=== PATIENT | female | born 1980 | race Caucasian/White ===

== ENCOUNTER → 2017-06-27 11:39 | Outpatient (REF) | payer MEDICAID, SELFPAY ==
[2017-06-27 18:15] LABS: Basophils % 0.4 % (0.1-2.0); Eosinophils # 0.2 K/mm3 (0.0-0.4); Eosinophils % 2.4 % (0.1-12.0); Hematocrit 40.7 % (37.0-47.0); Lymphocytes # 2.2 K/mm3 (0.7-4.5); Lymphocytes % 29.7 K/mm3 (10-50); Mean Corpuscular HGB Conc 31.9 g/dL (31.8-35.4); Mean Corpuscular Hemoglobin 29.7 pg (27.0-31.2); Mean Corpuscular Volume 93.2 fl (81-99); Mean Platelet Volume 9.5 fl (7.4-10.4); Monocytes # 0.3 K/mm3 (0.1-1.0); Monocytes % 4.1 % (1.7-9.3); Neutrophils # 4.7 K/mm3 (1.8-7.8); Neutrophils % 63.4 % (37.0-80.0); Platelet Count 311 K/mm3 (142-424); Red Blood Count 4.37 M/mm3 (4.20-5.40); Red Cell Distribution Width 13.3 % (11.5-17.5); White Blood Count 7.4 K/mm3 (4.8-10.8)
[2017-06-27 20:26] LABS: Alanine Aminotransferase 34 U/L (12-78); Albumin Level 3.4 gm/dL (3.4-5.0); Albumin/Globulin Ratio 1.1 (1.1-1.8); Alkaline Phosphatase 104 U/L (46-116); Anion Gap 12.1 mEq/L (5-15); Aspartate Amino Transferase 20 U/L (15-37); Bilirubin,Total 0.4 mg/dL (0.2-1.0); Blood Urea Nitrogen 13 mg/dL (7-18); Calcium 8.4 mg/dL (8.5-10.1); Carbon Dioxide 26 mmol/L (21.0-32.0); Chloride 104 mmol/L (98-107); Creatinine,Serum 0.64 mg/dL (0.55-1.02); Estimated Glomerular Filt Rate > 60 ml/min (>60); GFR (African American) > 60 ML/MIN (>60); Globulin 3.1 gm/dl (1.3-3.2); Glucose 68 mg/dL (74-106); Potassium 4.1 mmoL/L (3.5-5.1); Sodium 138 mmol/L (136-145); Total Protein,Serum 6.5 gm/dL (6.4-8.2)
== END ==
LOC: LAB 11:39
PROVIDERS: Visit Provider Nurse Practitioner Family
DX: R53.83 Other fatigue (principal); R10.9 Unspecified abdominal pain
CPT/HCPCS: 80053; 85025

== ENCOUNTER → 2017-08-22 14:46 | Outpatient (REF) | payer MEDICAID, SELFPAY ==
[2017-08-25 16:03] LABS: Amphetamine/Metha Screen,Urine Negative ng/mL (<1000); Barbiturates Screen,Urine Negative ng/mL (<200); Benzodiazepines Screen,Urine Negative ng/mL (200); Cannabinoid Screen,Urine Negative ng/mL (<50); Cocaine Screen,Urine Negative ng/g (<300); Methadone Screen,Urine Negative ng/mL (<300); Opiate Screen,Urine Negative ng/mL (<300); Phencyclidine Screen,Urine Negative ng/mL (<25)
== END ==
LOC: LAB 14:46
PROVIDERS: Visit Provider Nurse Practitioner Family
DX: R68.89 Other general symptoms and signs (principal)
CPT/HCPCS: 80305

== ENCOUNTER → 2017-11-10 09:45 | Outpatient (REF) | payer MEDICAID, SELFPAY ==
[2017-11-10 13:43] LABS: Basophils % 0.5 % (0.1-2.0); Eosinophils # 0.1 K/mm3 (0.0-0.4); Eosinophils % 1.8 % (0.1-12.0); Hematocrit 39.8 % (37.0-47.0); Hemoglobin 13.3 g/dL (12.2-16.2); Lymphocytes % 31.9 K/mm3 (10-50); Mean Corpuscular HGB Conc 33.3 g/dL (31.8-35.4); Mean Corpuscular Hemoglobin 30.5 pg (27.0-31.2); Mean Corpuscular Volume 91.4 fl (81-99); Mean Platelet Volume 9.7 fl (7.4-10.4); Monocytes # 0.3 K/mm3 (0.1-1.0); Monocytes % 4.7 % (1.7-9.3); Neutrophils # 3.8 K/mm3 (1.8-7.8); Platelet Count 278 K/mm3 (142-424); Red Blood Count 4.36 M/mm3 (4.20-5.40); Red Cell Distribution Width 13.1 % (11.5-17.5); White Blood Count 6.2 K/mm3 (4.8-10.8)
[2017-11-10 13:58] LABS: Hemoglobin A1C 4.6 % (0.0-7.0)
[2017-11-10 14:33] LABS: Alanine Aminotransferase 28 U/L (12-78); Albumin Level 3.5 gm/dL (3.4-5.0); Albumin/Globulin Ratio 1.1 (1.1-1.8); Alkaline Phosphatase 90 U/L (46-116); Anion Gap 13.6 mEq/L (5-15); Aspartate Amino Transferase 15 U/L (15-37); Bilirubin,Total 0.4 mg/dL (0.2-1.0); Blood Urea Nitrogen 17 mg/dL (7-18); Calcium 9.3 mg/dL (8.5-10.1); Carbon Dioxide 25 mmol/L (21.0-32.0); Chloride 107 mmol/L (98-107); Chol/HDL Ratio 2.6 (1-3.5); Cholesterol 136 mg/dL (140-200); Creatinine,Serum 0.61 mg/dL (0.55-1.02); Estimated Glomerular Filt Rate 111 ml/min (>60); GFR (African American) 134 ML/MIN (>60); Globulin 3.1 gm/dl (1.3-3.2); Glucose 91 mg/dL (74-106); HDL Cholesterol 53 mg/dL (29-89); LDL Cholesterol 71 mg/dL (0-130); Potassium 4.6 mmoL/L (3.5-5.1); Sodium 141 mmol/L (136-145); Total Protein,Serum 6.6 gm/dL (6.4-8.2); Triglycerides 61 mg/dL (30-200); VLDL Cholesterol 12 mg/dL (0-40)
== END ==
LOC: LAB 09:45
PROVIDERS: Visit Provider Nurse Practitioner Family
DX: R53.83 Other fatigue (principal); E66.9 Obesity, unspecified; Z79.899 Other long term (current) drug therapy
CPT/HCPCS: 80053; 80061; 83036; 85025

== ENCOUNTER → 2018-02-18 10:58 | Outpatient (REF) | payer MEDICAID, SELFPAY ==
[2018-02-20 13:22] LABS: Hepatitis B Surf Ab Quant <3.1 mIU/mL (Immunity>9.9)
== END ==
LOC: LAB 10:58
PROVIDERS: Visit Provider Physician Assistant
DX: Z02.1 Encounter for pre-employment examination (principal)
CPT/HCPCS: 86706

== ENCOUNTER → 2018-02-27 09:55 | Outpatient (REF) | payer MEDICAID, SELFPAY ==
[2018-03-03 08:30] LABS: Measles Antibodies, IgG >300.0 AU/mL (Immune >29.9); Mumps Abs, IgG 65.9 AU/mL (Immune >10.9); Rubella Antibodies, IgG 2.88 index (Immune >0.99)
== END ==
LOC: LAB 09:55
PROVIDERS: Visit Provider Emergency Medicine
DX: Z02.1 Encounter for pre-employment examination (principal); Z23 Encounter for immunization
CPT/HCPCS: 86735; 86762; 86765

== ENCOUNTER → 2019-03-05 13:48 | Outpatient (CLI) | payer MEDICAID, SELFPAY ==
[2019-03-05 14:38] LABS: Amphetamine/Metha Screen,Urine Negative ng/mL (<1000); Barbiturates Screen,Urine Negative ng/mL (<200); Benzodiazepines Screen,Urine Negative ng/mL (<200); Cannabinoid Screen,Urine Negative ng/mL (<50); Cocaine Screen,Urine Negative ng/mL (<300); Methadone Screen,Urine Negative ng/mL (<300); Opiate Screen,Urine Negative ng/mL (<300); Phencyclidine Screen,Urine Negative ng/mL (<25)
== END ==
PROVIDERS: Visit Provider Nurse Practitioner Family
DX: E66.01 Morbid (severe) obesity due to excess calories (principal)
CPT/HCPCS: 80305

== ENCOUNTER → 2019-07-07 18:12 | Outpatient (CLI) | payer MEDICAID, SELFPAY ==
[2019-07-07 20:39] LABS: Amphetamine/Metha Screen,Urine Negative ng/mL (<1000); Barbiturates Screen,Urine Negative ng/mL (<200); Benzodiazepines Screen,Urine Negative ng/mL (<200); Cannabinoid Screen,Urine Negative ng/mL (<50); Cocaine Screen,Urine Negative ng/mL (<300); Methadone Screen,Urine Negative ng/mL (<300); Opiate Screen,Urine Negative ng/mL (<300); Phencyclidine Screen,Urine Negative ng/mL (<25)
== END ==
PROVIDERS: Visit Provider Nurse Practitioner Family
DX: E66.01 Morbid (severe) obesity due to excess calories (principal)
CPT/HCPCS: 80305

== ENCOUNTER → 2019-08-25 10:16 | Outpatient (CLI) | payer MEDICAID, SELFPAY ==
[2019-08-26 12:19] LABS: LH 1.6 mIU/mL (.)
== END ==
PROVIDERS: Visit Provider Nurse Practitioner Obstetrics & Gynecology
DX: N92.6 Irregular menstruation, unspecified (principal)
CPT/HCPCS: 36415; 82670; 83001; 83002

== ENCOUNTER → 2021-03-15 10:12 | Outpatient (CLI) | payer MEDICAID, SELFPAY ==
[2021-03-15 10:58] LABS: Basophils # 0.1 K/mm3 (0-0.2); Basophils % 0.9 % (0.1-2.0); Eosinophils # 0.1 K/mm3 (0.0-0.4); Eosinophils % 1.2 % (0.1-12.0); Hematocrit 44.2 % (37.0-47.0); Hemoglobin 14.1 g/dL (12.2-16.2); Lymphocytes # 1.8 K/mm3 (0.7-4.5); Lymphocytes % 33.7 % (10-50); Mean Corpuscular HGB Conc 31.9 g/dL (31.8-35.4); Mean Corpuscular Hemoglobin 31.2 pg (27.0-31.2); Mean Corpuscular Volume 97.5 fl (81-99); Mean Platelet Volume 9.4 fl (7.4-10.4); Monocytes # 0.3 K/mm3 (0.1-1.0); Monocytes % 4.6 % (1.7-9.3); Neutrophils # 3.3 K/mm3 (1.8-7.8); Neutrophils % 59.6 % (37.0-80.0); Platelet Count 353 K/mm3 (142-424); Red Blood Count 4.53 M/mm3 (4.20-5.40); White Blood Count 5.5 K/mm3 (4.8-10.8)
[2021-03-15 11:13] LABS: Chloride 106 mmol/L (98-107)
[2021-03-15 11:14] LABS: Potassium 4.4 mmoL/L (3.5-5.1); Sodium 140 mmol/L (136-145)
[2021-03-15 11:16] LABS: Alanine Aminotransferase 11 U/L (12-78); Alkaline Phosphatase 85 U/L (38-126); Anion Gap 12.4 mEq/L (5-15); Aspartate Amino Transferase 19 U/L (14-36); Bilirubin,Total 0.4 mg/dl (0.2-1.3); Blood Urea Nitrogen 12 mg/dl (7-17); Carbon Dioxide 26 mmol/L (22.0-30.0); Cholesterol 193 mg/dl (140-200); Estimated Glomerular Filt Rate 111 ml/min (>60); GFR (African American) 134 ML/MIN (>60); Triglycerides 133 mg/dl (30-150); VLDL Cholesterol 27 mg/dL (0-40)
[2021-03-15 11:17] LABS: Albumin/Globulin Ratio 1.5 (1.1-1.8); Calcium 9.1 mg/dl (8.4-10.2); Chol/HDL Ratio 2.3 (1-3.5); Globulin 2.6 g/dL (1.3-3.2); Glucose 93 mg/dl (74-100); HDL Cholesterol 85 mg/dl (40-60); Total Protein,Serum 6.6 g/dl (6.3-8.2)
[2021-03-15 11:28] LABS: Direct LDL Cholesterol 87.98 mg/dL (100-129)
[2021-03-15 11:34] LABS: 25-OH Vitamin D, Total 33.3 ng/mL (30-100)
[2021-03-16 08:44] LABS: FSH 6.9 mIU/mL (.); LH 10.6 mIU/mL (.)
== END ==
PROVIDERS: Visit Provider Nurse Practitioner Obstetrics & Gynecology
DX: Z01.419 Encounter for gynecological examination (general) (routine) without abnormal findings (principal); N95.1 Menopausal and female climacteric states
CPT/HCPCS: 36415; 80053; 80061; 82306; 83001; 83002; 85025

== ENCOUNTER → 2021-03-23 08:40 | Outpatient (CLI) | payer MEDICAID, SELFPAY ==
--- NOTE | 2021-03-23 08:41 | CA_ITS ---
APPROVED REPORT Left Lower Extremity Venous Study for DVT. Training Program Developer: GISELE Indications Lower Extremity Pain: Left Pain in LLE X several years with pain worsening in last several months. Patient denies recent trauma. Risk Factors Obesity Vein Imaging CFV (L): compressive, spontaneous, phasic, augmentation FEM (L): compressive, spontaneous, phasic, augmentation POP (L): compressive, spontaneous, phasic, augmentation PTV (L): Compressible GSV (L): compressive, spontaneous, phasic, augmentation Peroneals (L):Compressible Findings No evidence of DVT or superficial thrombophlebitis in the veins scanned of the left lower extremity. Conclusion No evidence of DVT or superficial thrombophlebitis in the veins scanned of the left lower extremity. Electronically signed by : Bobo Bello MD 03/23/2021 09:53:57
== END ==
PROVIDERS: PCP Emergency Medicine; Visit Provider Nurse Practitioner Family
DX: M79.605 Pain in left leg (principal)
CPT/HCPCS: 93971

== ENCOUNTER → 2021-03-30 08:39 | Outpatient (CLI) | payer MEDICAID, SELFPAY ==
--- NOTE | 2021-03-30 08:41 | XR_ITS ---
PROCEDURE: XR KNEE LT 4V CLINICAL INDICATION: LT leg pain COMPARISON: No exams were available for comparison FINDINGS: No fracture or dislocation. No lytic or blastic change. There is normal mineralization. The joint spaces are well-preserved. No significant degenerative/arthritic changes. No erosive changes evident. Other findings:None. IMPRESSION: No acute findings. Dictated by: Dr. González Maravilla MD 03/30/2021 10:39 Dr. González Maravilla MD in [place] 03/30/2021 10:39
--- NOTE | 2021-03-30 08:41 | XR_ITS ---
PROCEDURE: XR TIBIA FIBULA LT 2V CLINICAL INDICATION: LT leg pain COMPARISON: No exams were available for comparison FINDINGS: IMPRESSION: No acute findings. Dictated by: Dr. González Maravilla MD 03/30/2021 10:40 Dr. González Maravilla MD in [place] 03/30/2021 10:40
== END ==
PROVIDERS: PCP Emergency Medicine; Visit Provider Orthopaedic Surgery
DX: M79.605 Pain in left leg (principal); M25.562 Pain in left knee
CPT/HCPCS: 73564; 73590

== ENCOUNTER 2021-06-20 09:01 | Emergency (ER) | payer MEDICAID, SELFPAY ==
[2021-06-20 09:15] VITALS: BP 148/94; PULSE 79; RESP 18; TEMP 36.8; O2SAT 98; BMI 47.6
--- NOTE | 2021-06-20 09:48 | HMH.EDUTC ---
[facility] [place]: Rash Disposition: Home, Self-Care Condition on Discharge: Good Instructions: DI for Rash Additional Instructions: Use Cream as prescribed Follow up with Family Doctor if no improvement or any worsening of symptoms Follow up with Dr Smith for allergy testing if symptoms continue Follow up with Dermatology if needed Return if needed Straight to ER if any life threatening symptoms Prescriptions: Triamcinolone Acetonide [Kenalog 0.1% cream 80gm tube] 1 applicatio TOPICAL BID #80 gm Transmission Status: Pending to [facility] methylPREDNISolone [Medrol 4mg tab] 4 mg PO DIRECTED #21 tab Transmission Status: Pending to [facility] Referrals: Sohail Eng APRN [Primary Care Provider] - Kilo Smith [Referring] - Time of Disposition: 10:12 Medical Decision Making - Jesús Inquiry Pt receiving controlled substance: No Jesús was queried for this patient: No Vital Signs: 06/20/21 09:15 Temperature 98.2 F Temperature Source Oral Pulse Rate [Right Brachial] 79 Respiratory Rate 18 Blood Pressure [Right Arm] 148/94 H Blood Pressure Mean [Right Arm] 112 Blood Pressure Source [Right Arm] Automatic Cuff Blood Pressure Position [Right Arm] Sitting 02 Sat by Pulse Oximetry 98 Oxygen Delivery Method Room Air - Lab Data Lab results reviewed: Yes: I reviewed the patient's lab results. Orders (Tests/Meds): ED MEDICATIONS Discontinued Medications Generic Name Dose Route Start Last Admin Trade Name Freq PRN Reason Stop Dose Admin Methylprednisolone Sodium Succinate 125 mg 06/20/21 09:49 Methylprednisolone Sod Succ 125mg Vial IM 06/20/21 09:50 ON[place] [facility] [place] - General Stated complaint: rash Time Seen by Provider: 06/20/21 09:48 Mode of Arrival: Ambulatory Source of Information: Patient Limitations: No Limitations Description of Symptoms (Recalled from Triage Doc. by RN): PATIENT C/O ITCHY, RED RASH TO BILATERAL HANDS AND LOWER LEGS. SHE STATES SHE WAS PREVIOUSLY TREATED FOR IT WITH STEROIDS AND CREAM AND IT WENT AWAY, BUT HAS RETURNED. HEENT Symptoms (Recalled from RN notes): No Resp Symptoms (Recalled from RN notes): No Skin Symptoms (Recalled from RN notes): Yes MS Symptoms (Recalled from RN notes): No Functional Status (Recalled from RN notes): WNL - History of Present Illness Provider Complaint: Patient states that she has been having rash on and off for several months on her hands and legs States that it will just appear, be itchy and spreading around hands and leg States that today she was itching worse so she came in again to get checked to see what it is and get treatment States that she was given oral steriods and steriod cream and it helped before - Related Data Home Medications Medication Instructions Recorded Confirmed biotin 1,000 mcg chewable tablet 1,000 mcg PO DAILY 07/14/18 06/01/21 Previous Rx's Medication Instructions Recorded norgestimate 0.25 mg-ethinyl 1 tab PO DAILY #84 tab 03/15/21 estradiol 35 mcg tablet fluconazole 150 mg tablet 150 mg PO Q3D 3 Days #2 tab 06/11/21 Triamcinolone Acetonide [Kenalog 1 applicatio TOPICAL BID #80 gm 06/20/21 0.1% cream 80gm tube] methylPREDNISolone [Medrol 4mg 4 mg PO DIRECTED #21 tab 06/20/21 tab] Allergies Allergy/AdvReac Type Severity Reaction Status Date / Time enoxaparin [From Lovenox] Allergy Intermediate Bruising Verified 06/01/21 09:54 and Hives - Worker's Comp Is this a Worker's Comp case?: No [facility] History - Hepatitis A Screen Drug use history?: No High risk sexual behaviors?: No History of sexually transmitted infection?: No Currently employed?: No Childcare worker?: No Do you have indoor plumbing?: Yes Do you have electricity?: Yes Attestation statement:: This patient has been screened for Hepatitis A risk factors. I have reviewed the patient's past medical history: Yes Medical History: Reports:: Anxiety
[2021-06-20 10:11] VITALS: BP 148/94; PULSE 79; RESP 18; TEMP 36.8; O2SAT 98
== END 2021-06-20 10:22 | disposition home or self-care (01) ==
PROVIDERS: Emergency Provider Nurse Practitioner; PCP Nurse Practitioner Family
DX: R21 Rash and other nonspecific skin eruption (principal); F41.8 Other specified anxiety disorders; K21.9 Gastro-esophageal reflux disease without esophagitis; I10 Essential (primary) hypertension; Z79.899 Other long term (current) drug therapy
CPT/HCPCS: 96372; 99202; G0463

== ENCOUNTER → 2021-07-23 08:33 | Outpatient (POV) | payer MEDICAID, SELFPAY ==
--- NOTE | 2021-07-23 09:24 | HMH.PMCON ---
Assessment and Plan (1) Low back pain Status: Chronic Category: Medical Code(s): M54.50 - Low back pain, unspecified (2) Lumbar radiculopathy Status: Chronic Category: Medical Code(s): M54.16 - Radiculopathy, lumbar region (3) Neck pain Status: Chronic Category: Medical Code(s): M54.2 - Cervicalgia (4) Cervical radiculopathy Status: Chronic Category: Medical Code(s): M54.12 - Radiculopathy, cervical region - Assessment and plan all Dx Assessment and Plan for all problems:: We will schedule the patient for a cervical and lumbar MRI. She is having pain to her cervical and lumbar spine as well as upper and lower extremities. 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 We will order her tizanidine 2 mg 1 tablet p.o. 3 times daily muscle spasms. We will also get the patient a dermatology consult for pruritus and rash to trunk and bilateral upper and lower extremities. She did see urgent treatment center who did start her on steroids. We will follow up with her afterwards for further evaluation. Patient has been instructed to contact the clinic with any concerns before the next appointment. Dr. Zabala has reviewed this note and agrees with this plan of care. This note was dictated using voice recognition software and make contain errors or omissions. HPI - Data of Consult Patient: new to practice Consult date: 07/23/21 Requesting Physician: Cristy Dudley APRN - Consult Narrative Reason for consult: Neck pain, low back pain, left leg pain History of present illness: Ms. José is a 41 year old female who presents today for consultation for chronic low back pain as well as chronic neck pain. She says she has had this pain for several years. She did see Dr. Duque who referred the patient to rheumatology for an EMG study. The patient was having low back pain with radicular pain into her left buttock left hip and left leg. She was having pain into her left foot as well. She says that the pain to her left lower extremity has improved somewhat. She is doing stretching at home which is helped somewhat with the neck and low back pain, and has also had physical therapy for more than 6 weeks. She is unable to take anti-inflammatories due to her history of gastric bypass surgery. She does have a disabled child who is 16 years old that she does have to physically lift from a wheelchair couple times throughout the day. This is caused a great deal of pain to her neck area. She reports her pain to be worse with bending forward and does improve with repositioning. She has also had significant pain with sitting and does have to reposition often for relief. She denies any pain in her groin. She says that her low back area is very sensitive to touch. Lying on her back causes severe pain. Patient says that she is starting to have numbness and tingling into her upper extremities as well when sleeping at night. She has not had further imaging aside from x-rays of the neck and low back. The patient does report to be having pruritus that is significant. She did go to urgent treatment center for this. It is noted throughout her entire body small red lumbar dry patches of skin. She rates her pain a 7 out of 10. CC: Cristy Dudley APRN [facility] History I have reviewed the patient's past medical history: Yes Medical History: Reports:: Anxiety, Depression, Gastroesophageal Reflux Disease(GERD), Hypertension Denies:: Diabetes Mellitus Type 1, Hyperlipidemia, Migraine, MRSA, Seizures *Have you ever received a pneumonia vaccine?: No *Have you received a flu vaccine this season?: No Other Medical History: Reports: Other Other Surgeries: Yes: Bariatric Surgery, Amputation: No Fractures: No - *Social History Smoking Status: Never smoker Alcohol Intake: never Alcohol Intake Frequency:: other Substance Use Type: denies use *Occupational
[2021-07-23 09:29] VITALS: BP 162/98; PULSE 79; RESP 18; O2SAT 98; BMI 47.2
== END ==
PROVIDERS: Visit Provider Clinical Nurse Specialist Family Health
DX: M54.50 Low back pain, unspecified (principal); M54.16 Radiculopathy, lumbar region; M54.2 Cervicalgia; M54.12 Radiculopathy, cervical region
CPT/HCPCS: 99202; G0463

== ENCOUNTER → 2021-07-31 10:10 | Outpatient (CLI) | payer MEDICAID, SELFPAY ==
--- NOTE | 2021-07-31 10:14 | MR_ITS ---
FINAL REPORT CLINICAL HISTORY: NECK/BACK PAIN, BILATERAL ARM NUMBNESS, NO INJURY. NO PRIOR FINDINGS: Multiplanar MR imaging of the cervical spine was performed without contrast. On the sagittal T2-weighted images, disc degeneration is seen throughout. There is straightening of the cervical spine. There is no evidence of fracture. The vertebral alignment is normal. The cervical spinal cord has an unremarkable appearance without evidence of mass, edema or syrinx. No significant canal stenosis is identified. The cervicomedullary junction is normal. C2-3: There is no significant canal stenosis or neural foraminal narrowing. C3-4: There is no significant canal stenosis or neural foraminal narrowing. C4-5: Uncovertebral osteophytes are present with mild left neural foraminal narrowing. C5-6: Disc osteophyte complex is present. There is no significant canal stenosis or neural foraminal narrowing. C6-7: An annular bulge is present with mild right neural foraminal narrowing. C7-T1: There is no significant canal stenosis or neural foraminal narrowing. IMPRESSION: Degenerative disc disease as above. Reviewed, Interpreted and Dictated by Dewayne Mitchell III, MD Transcribed by Tabatha Arguello Authenticated by Dewayne Mitchell III, MD on 07/31/2021 01:50:09 PM [facility]
--- NOTE | 2021-07-31 10:14 | MR_ITS ---
FINAL REPORT CLINICAL HISTORY: NECK/BACK PAIN DOWN LEFT LEG, NO INJURY, NO PRIOR FINDINGS: Multiplanar MR imaging of the lumbar spine was performed without contrast. On the sagittal T2-weighted images, disc degeneration is seen at several levels. There is 6 mm of anterolisthesis of L5 on S1. There is no evidence of fracture. No bony mass is identified. The conus has an unremarkable appearance. No significant canal stenosis is identified. L1-2: No significant central canal stenosis or neuroforaminal narrowing. L2-3: No significant central canal stenosis or neuroforaminal narrowing. L3-4: No significant central canal stenosis or neuroforaminal narrowing. L4-5: An annular bulge is present. No significant central canal stenosis or neuroforaminal narrowing. L5-S1: An annular bulge and facet arthropathy are present. There are bilateral L5 pars defects with grade 1 anterolisthesis of L5 on S1. There is moderate right and mild left neural foraminal narrowing. IMPRESSION: Bilateral L5 pars defects with grade 1 anterolisthesis of L5 on S1 and bilateral neural foraminal narrowing. Reviewed, Interpreted and Dictated by Dewayne Mitchell III, MD Transcribed by Tabatha Arguello Authenticated by Dewayne Mitchell III, MD on 07/31/2021 01:50:15 PM [facility]
== END ==
PROVIDERS: PCP Nurse Practitioner Family; Visit Provider Clinical Nurse Specialist Family Health
DX: M54.2 Cervicalgia (principal); M54.50 Low back pain, unspecified
CPT/HCPCS: 72141; 72148; 76376

== ENCOUNTER → 2021-08-09 10:41 | Outpatient (POV) | payer MEDICAID, SELFPAY ==
[2021-08-09 10:57] VITALS: BP 160/96; PULSE 68; RESP 18; O2SAT 96; BMI 47.5
--- NOTE | 2021-08-09 15:23 | HMH.PAINSOAP ---
[facility] Pain Management SOAP Note Subjective:: This patient is a very pleasant 41-year-old white female who presents today for follow-up. She is currently being treated for degenerative disc disease of the cervical and lumbar spine fascial pain syndrome. She recently prescribed tizanidine 2 mg 1 tablet p.o. up to 3 times daily as needed for muscle spasms and she states that her pain has significantly improved since starting this medication. She states that most of her pain is in her neck and her low back. She denies any radiation of pain in her arms or legs at this time. She states that she typically takes this medication only at bedtime and has noticed significant relief. She also recently underwent MRI of the cervical and lumbar spine which demonstrated multilevel degenerative disc disease including bilateral L5 pars defects with grade 1 anterolisthesis of L5 on 1 and bilateral neural foraminal narrowing at L5-S1. On the MRI of the cervical spine she was found to have mild left neural foraminal narrowing at C4-C5 and at C6-C7 she was found to have an annular bulge with mild right neural foraminal narrowing. She rates her pain today as a 2 out of 10. ROS General: No recent weight changes, no fever, no sleep disturbances Respiratory: No cough, no shortness of air, no recurring pulmonary infections Cardiovascular/peripheral vascular: No chest pain, no palpitations, no edema, no shortness of breath Gastrointestinal: No new onset incontinence, normal bowel movements reported Genitourinary: No new onset incontinence Musculoskeletal: Neck neck and low back pain Psychiatric: [Normal mood/affect] Neurological: [Denies weakness in extremities], [denies balance issues] Objective:: General: Alert and oriented x3, no acute distress, pleasant and cooperative Lungs: Resps E/U, symmetric chest expansion Eyes: PERRL Musculoskeletal: limited flexion and extension of the cervical and lumbar spine secondary to pain. Deep tendon reflexes were normal in bilateral upper and lower extremities. Motor exam was grossly intact in the bilateral upper and lower extremities, antalgic gait noted. Multiple active trigger points in the bilateral upper trapezius and cervical paraspinal muscles Neurological: Speech is clear, global supply chain vice president equal, no gross sensory deficits Assessment:: Degenerative disc disease of the cervical and lumbar spine and myofascial pain Plan:: I discussed with the patient that she should continue taking tizanidine 2 mg 1 tablet p.o. up to 3 times daily as needed for muscle spasms. Since she is only taking this medication at bedtime at this time I told her if the pain worsens she can try taking an additional dose during the day for better myofascial pain relief. I discussed with the patient should the pain worsen we can discuss performing trigger point injections to the bilateral upper trapezius and bilateral cervical paraspinal muscles in the future. We will follow-up with this patient in 1 month for reassessment of her chronic pain symptoms and medication refills. [facility] History Medical History: Reports:: Anxiety, Depression, Gastroesophageal Reflux Disease(GERD), Hypertension Denies:: Diabetes Mellitus Type 1, Hyperlipidemia, Migraine, MRSA, Seizures *Have you ever received a pneumonia vaccine?: No *Have you received a flu vaccine this season?: No Other Medical History: Reports: Other Other Surgeries: Yes: Bariatric Surgery, Amputation: No Fractures: No - *Social History Smoking Status: Never smoker Alcohol Intake: never Alcohol Intake Frequency:: other Substance Use Type: denies use *Occupational Status:: unemployed Housing: house Household Members: family *Travel in the last 8 weeks: None - Psychiatric History Pschychiatric History:: Reports:: Anxiety, Depression Family Hx:: Hypertension, Cancer, Heart Attack, Stroke
== END ==
PROVIDERS: Visit Provider Anesthesiology Pain Medicine
DX: M50.30 Other cervical disc degeneration, unspecified cervical region (principal); M51.16 Intervertebral disc disorders with radiculopathy, lumbar region; M79.18 Myalgia, other site
CPT/HCPCS: 99212; G0463

== ENCOUNTER 2021-11-05 09:00 | Emergency (ER) | payer MEDICAID, SELFPAY ==
[2021-11-05 09:23] VITALS: BP 135/95; PULSE 71; RESP 18; TEMP 36.6; O2SAT 100; BMI 49.0
--- NOTE | 2021-11-05 09:29 | HMH.EDUTC ---
[facility] [place] Clinical Impression: Sinusitis Qualifiers: Sinusitis location: unspecified location Chronicity: acute Recurrence: non-recurrent Qualified Code(s): J01.90 - Acute sinusitis, unspecified Disposition: Home, Self-Care Condition on Discharge: Good Instructions: DI for Sinusitis Additional Instructions: Drink plenty of fluids. Take tylenol or ibuprofen for pain or fever. Take the medications as directed. Follow up with your regular doctor. GO TO THE ER FOR ANY WORSENING SYMPTOMS Prescriptions: Benzonatate [Benzonatate 100mg cap] 100 mg PO TIDP PRN #30 cap PRN Reason: Cough Transmission Status: Received by [facility] methylPREDNISolone [Medrol] 4 mg PO DIRECTED 6 Days #21 packet Transmission Status: Received by [facility] Azithromycin [Z-Anuel 250mg Tab*] 250 mg PO UD DOSE PK #6 tab Transmission Status: Received by [facility] Referrals: Sohail Eng APRN [Primary Care Provider] - Forms: Work/School Release Time of Disposition: 09:37 Medical Decision Making - Medical Records Medical records reviewed: No: I reviewed the patient's medical records. - Jesús Inquiry Pt receiving controlled substance: No Vital Signs: 11/05/21 09:23 11/05/21 09:41 Temperature 97.9 F 97.9 F Temperature Source Oral Pulse Rate 71 Pulse Rate [Radial] 71 Respiratory Rate 18 18 Blood Pressure 135/84 Blood Pressure [Right Arm] 135/95 H Blood Pressure Mean [Right Arm] 108 02 Sat by Pulse Oximetry 100 - Lab Data Lab results reviewed: Yes: I reviewed the patient's lab results. Lab Results 11/05/21 09:15: Group A Strep Rapid Negative 11/05/21 09:20: Influenza Type A Ag Negative, Influenza Type B Ag Negative Orders (Tests/Meds): ORDERS Category Date Time Status Strep Screen Confirmation Stat Micro 11/05/21 09:15 Received [facility] [place] - General Stated complaint: congestion, runny nose, itchy throat, cough Time Seen by Provider: 11/05/21 09:34 - History of Present Illness Provider Complaint: She states that for the past 3 days she has had chest congestion, low grade fever, sinus congestion and malaise for the past 3 days. - Related Data Home Medications Medication Instructions Recorded Confirmed biotin 1,000 mcg chewable tablet 1,000 mcg PO DAILY 07/14/18 06/01/21 Previous Rx's Medication Instructions Recorded norgestimate 0.25 mg-ethinyl 1 tab PO DAILY #84 tab 03/15/21 estradiol 35 mcg tablet Triamcinolone Acetonide [Kenalog 1 applicatio TOPICAL BID #80 gm 06/20/21 0.1% cream 80gm tube] methylPREDNISolone [Medrol 4mg 4 mg PO DIRECTED #21 tab 06/20/21 tab] Tizanidine HCl [Tizanidine HCl 2 mg PO TID PRN #90 tab 07/23/21 2mg] fluconazole 150 mg tablet 150 mg PO Q3D 3 Days #2 tab 09/13/21 Azithromycin [Z-Aunel 250mg Tab*] 250 mg PO UD DOSE PK #6 tab 11/05/21 Benzonatate [Benzonatate 100mg 100 mg PO TIDP PRN #30 cap 11/05/21 cap] methylPREDNISolone [Medrol] 4 mg PO DIRECTED 6 Days #21 11/05/21 packet Allergies Allergy/AdvReac Type Severity Reaction Status Date / Time enoxaparin [From Lovenox] Allergy Intermediate Bruising Verified 11/05/21 09:30 and Hives [facility] History - Hepatitis A Screen Attestation statement:: This patient has been screened for Hepatitis A risk factors. I have reviewed the patient's past medical history: Yes Medical History: Reports:: Anxiety, Depression, Gastroesophageal Reflux Disease(GERD), Hypertension Denies:: Diabetes Mellitus Type 1, Hyperlipidemia, Migraine, MRSA, Seizures Other Medical History: Reports: Other Comment: Depression Other Surgeries: Yes: Bariatric Surgery, Amputation: No Fractures: No Comment: wisdom teeth,BARIATRIC SLEEVE - Social History Smoking Status: Never smoker Alcohol Intake: never Alcohol Intake Frequency:: other Substance Use Type: denies use Occupational Status: unemployed Housing: house Household Members: [facility] [employer]
[2021-11-05 09:35] LABS: UTC Influenza A Antigen Negative (Negative)
[2021-11-05 09:36] LABS: UTC Influenza B Antigen Negative (Negative)
[2021-11-05 09:41] VITALS: BP 135/84; PULSE 71; RESP 18; TEMP 36.6
[2021-11-05 09:46] LABS: Strep Scrn Group A (Rapid) Negative (Negative)
== END 2021-11-05 09:43 | disposition home or self-care (01) ==
PROVIDERS: Emergency Provider Nurse Practitioner Family; PCP Nurse Practitioner Family
DX: J01.90 Acute sinusitis, unspecified (principal); I10 Essential (primary) hypertension; K21.9 Gastro-esophageal reflux disease without esophagitis; F32.A Depression, unspecified; F41.9 Anxiety disorder, unspecified; Z79.51 Long term (current) use of inhaled steroids; Z79.52 Long term (current) use of systemic steroids; Z79.899 Other long term (current) drug therapy; Z88.8 Allergy status to other drugs, medicaments and biological substances; Z98.84 Bariatric surgery status; Z82.49 Family history of ischemic heart disease and other diseases of the circulatory system; Z80.9 Family history of malignant neoplasm, unspecified
CPT/HCPCS: 87430; 87804; 99213; G0463

== ENCOUNTER → 2021-11-13 08:48 | Outpatient (POV) | payer MEDICAID, SELFPAY ==
[2021-11-13 09:35] VITALS: BP 164/105; PULSE 74; RESP 18; TEMP 36.5; O2SAT 96; BMI 47.5
--- NOTE | 2021-11-13 10:14 | HMH.PAINSOAP ---
[facility] Pain Management SOAP Note Subjective:: This patient is a very pleasant 41-year-old white female that returns our clinic today for follow-up visit. Patient has cervical and lumbar pain. However, patient not interested in any injection therapy at this time. She is taking tizanidine 2 mg 1 p.o. up to 3 times a day. However, she states she does not take 3 each day. Sometimes she goes with 1 pill/day. She does have pathology in the lumbar and cervical spine. MRI showing degenerative disc lumbar spine. In including bilateral L5 pars defect. Cervical spine has neuroforaminal narrowing at C4-5 and C6-7. 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 She states she lifts and pulls and carries the patient often. Rates her pain today 10/30. Patient's Jesús [id number] is been reviewed and appropriate. Patient wishes to proceed with the tizanidine only at this time. We discussed also trigger point injections in the future if necessary. Objective:: Patient is awake alert Berclair x3. In no acute distress. Flexion-extension lumbar and cervical spine normal. Deep tendon reflexes upper and lower extremities normal. Motor strength upper and lower extremities normal. There is no gross sensory deficit. Gait is normal. Assessment:: Degenerative disc disease cervical and lumbar spine. Plan:: Patient continue with tizanidine 2 mg 1 p.o. 2-3 times per day as needed. She will return to the clinic in 3 months for follow-up visit. [facility] History Medical History: Reports:: Anxiety, Depression, Gastroesophageal Reflux Disease(GERD), Hypertension Denies:: Diabetes Mellitus Type 1, Hyperlipidemia, Migraine, MRSA, Seizures *Have you ever received a pneumonia vaccine?: No *Have you received a flu vaccine this season?: No Other Medical History: Reports: Other Other Surgeries: Yes: Bariatric Surgery, Amputation: No Fractures: No - *Social History Smoking Status: Never smoker Alcohol Intake: never Alcohol Intake Frequency:: other Substance Use Type: denies use *Occupational Status:: employed Housing: house Household Members: family *Travel in the last 8 weeks: None - Psychiatric History Pschychiatric History:: Reports:: Anxiety, Depression Family Hx:: Hypertension, Cancer, Heart Attack, Stroke
== END ==
PROVIDERS: Visit Provider Nurse Anesthetist, Certified Registered
DX: M50.10 Cervical disc disorder with radiculopathy, unspecified cervical region (principal)
CPT/HCPCS: 99212; G0463

== ENCOUNTER → 2022-01-28 14:11 | Outpatient (POV) | payer MEDICAID, SELFPAY ==
[2022-01-28 14:15] VITALS: BP 149/91; PULSE 77; RESP 20; BMI 47.5
--- NOTE | 2022-01-28 14:37 | P.CONS_ITS ---
[facility] Pain Management SOAP Note Subjective:: Patient is a pleasant 41-year-old female who is here for medication refill and follow-up. Patient is currently being treated for degenerative disc disease of the cervical and lumbar spine, myofascial pain. Patient is being managed with tizanidine 2 mg 2-3 times a day. Patient denies any side effects from the medications. Patient denies any changes to the location and type of pain. Patient states that this is adequately helping manage their pain. Rates pain as 3 out of the. Jesús number [phone], patient is not on any scheduled medications. Drug screens have been reviewed and appropriate. Review of Systems: General: No recent weight changes, no fever, no sleep disturbances Respiratory: No cough, no shortness of air, no recurring pulmonary infections Cardiovascular/peripheral vascular: No chest pain, no palpitations, no edema, no shortness of breath Gastrointestinal: No new onset incontinence, normal bowel movements reported Genitourinary: No new onset incontinence Musculoskeletal: Neck and low back pain Psychiatric: [Normal mood/affect] Neurological: [Denies weakness in extremities], [denies balance issues] Objective:: Physical Exam: General: Alert and oriented x3, no acute distress, pleasant and cooperative Lungs: Respirations even and unlabored, symmetrical chest expansion Eyes: PERRL Musculoskeletal: Flexion and extension of cervical and lumbar [spine] somewhat guarded secondary to pain, [antalgic gait noted]; tender to palpation around bilateral cervical paraspinous and upper trapezius muscles Neurological: Speech clear, no gross sensory deficit Assessment:: Degenerative disc disease of the cervical and lumbar spine, myofascial pain Plan:: We will continue the patient's please anything 2 mg 3 times a day and provided patient with 3 months worth of refill. We will follow this patient in 6 months. Patient can call our clinic if she is needing refills on her tizanidine. I will also refer this patient to physical therapy for further evaluation and treatment of myofascial pain of the bilateral cervical paraspinous, upper trapezius, and bilateral lumbar paraspinous muscles. Patient has been instructed to contact the clinic with any concerns before the next appointment. Dr. Zabala has reviewed this note and agrees with this plan of care. This note was dictated using voice recognition software and make contain errors or omissions. [facility] History Medical History: Reports:: Anxiety, Depression, Gastroesophageal Reflux Disease(GERD), Hypertension Denies:: Diabetes Mellitus Type 1, Hyperlipidemia, Migraine, MRSA, Seizures *Have you ever received a pneumonia vaccine?: No *Have you received a flu vaccine this season?: No Other Medical History: Reports: Other Other Surgeries: Yes: Bariatric Surgery, Amputation: No Fractures: No - *Social History Smoking Status: Never smoker Alcohol Intake: never Alcohol Intake Frequency:: other Substance Use Type: denies use *Occupational Status:: employed Housing: house Household Members: family *Travel in the last 8 weeks: None - Psychiatric History Pschychiatric History:: Reports:: Anxiety, Depression Family Hx:: Hypertension, Cancer, Heart Attack, Stroke
== END ==
PROVIDERS: PCP Emergency Medicine; Visit Provider Nurse Practitioner Family
DX: M51.36 Other intervertebral disc degeneration, lumbar region (principal); M50.30 Other cervical disc degeneration, unspecified cervical region
CPT/HCPCS: 99212; G0463

== ENCOUNTER → 2022-02-20 10:30 | Outpatient (CLI) | payer MEDICAID, SELFPAY ==
[2022-02-20 12:06] LABS: Basophils # 0.1 K/mm3 (0-0.2); Basophils % 0.9 % (0.1-2.0); Eosinophils # 0.1 K/mm3 (0.0-0.4); Eosinophils % 0.9 % (0.1-12.0); Hematocrit 42.6 % (37.0-47.0); Hemoglobin 13.5 g/dL (12.2-16.2); Lymphocytes # 1.7 K/mm3 (0.7-4.5); Lymphocytes % 29.9 % (10-50); Mean Corpuscular HGB Conc 31.8 g/dL (31.8-35.4); Mean Corpuscular Hemoglobin 30.6 pg (27.0-31.2); Mean Corpuscular Volume 96.3 fl (81-99); Mean Platelet Volume 8.9 fl (7.4-10.4); Monocytes # 0.2 K/mm3 (0.1-1.0); Monocytes % 3.7 % (1.7-9.3); Neutrophils # 3.7 K/mm3 (1.8-7.8); Neutrophils % 64.7 % (37.0-80.0); Platelet Count 343 K/mm3 (142-424); Red Blood Count 4.42 M/mm3 (4.20-5.40); Red Cell Distribution Width 13.2 % (11.5-17.5); White Blood Count 5.8 K/mm3 (4.8-10.8)
[2022-02-20 12:45] LABS: Alanine Aminotransferase 17 U/L (12-78); Albumin Level 3.7 g/dl (3.5-5.0); Albumin/Globulin Ratio 1.4 (1.1-1.8); Alkaline Phosphatase 96 U/L (38-126); Anion Gap 10.7 mEq/L (5-15); Aspartate Amino Transferase 22 U/L (14-36); Blood Urea Nitrogen 12 mg/dl (7-17); Calcium 9.3 mg/dl (8.4-10.2); Carbon Dioxide 28 mmol/L (22.0-30.0); Chloride 105 mmol/L (98-107); Estimated Glomerular Filt Rate 110 ml/min (>60); GFR (African American) 133 ML/MIN (>60); Globulin 2.7 g/dL (1.3-3.2); Glucose 89 mg/dl (74-100); Potassium 4.7 mmoL/L (3.5-5.1); Sodium 139 mmol/L (136-145); Total Protein,Serum 6.4 g/dl (6.3-8.2)
[2022-02-20 12:46] LABS: Bilirubin,Total 0.1 mg/dl (0.2-1.3)
[2022-02-21 08:52] LABS: Complement C3 195 mg/dL (82-167); HIV Screen 4th Generation wRfx Non Reactive (Non Reactive); Hep B Core Ab, Total Negative (Negative); Hep B Surface Ab, Qual Non Reactive (.); Hepatitis B Surface Antigen Negative (Negative); Hepatitis C Antibody <0.1 s/co ratio (0.0-0.9)
[2022-02-21 15:12] LABS: Immunoglobulin A, Qn 134 mg/dL (87-352); Immunoglobulin G, Qn 830 mg/dL (586-1602); Immunoglobulin M, Qn 162 mg/dL (26-217)
[2022-02-21 17:09] LABS: Albumin 3.5 g/dL (2.9-4.4); Alpha-1-Globulin 0.3 g/dL (0.0-0.4); Alpha-2-Globulin 0.9 g/dL (0.4-1.0); Gamma Globulin 0.8 g/dL (0.4-1.8); Protein, Total 6.6 g/dL (6.0-8.5)
[2022-02-22 14:11] LABS: Antinuclear Antibodies, IFA Negative (.)
== END ==
PROVIDERS: PCP Emergency Medicine; Visit Provider Nurse Practitioner Family
DX: L30.8 Other specified dermatitis (principal); S50.861A Insect bite (nonvenomous) of right forearm, initial encounter; L50.8 Other urticaria; L24.9 Irritant contact dermatitis, unspecified cause; Z79.899 Other long term (current) drug therapy; Z11.4 Encounter for screening for human immunodeficiency virus [HIV]
CPT/HCPCS: 36415; 80053; 82784; 84155; 84165; 85025; 86038; 86161; 86334; 86352; 86677; 86703; 86704; 86706; 87340; 87380; G0432

== ENCOUNTER → 2022-03-28 16:52 | Outpatient (CLI) | payer MEDICAID, SELFPAY ==
--- NOTE | 2022-03-28 17:01 | MM_ITS ---
PROCEDURE INFORMATION: Exam: Bilateral Screening 3D Mammography Exam date and time: 03/28/2022 4:56 PM Age: 42 years old Clinical indication: Screening examination; Additional info: Baseline. Family history of breast carcinoma. TECHNIQUE: Imaging protocol: Bilateral Screening tomosynthesis and 2D mammography including computer-aided detection (CAD) when performed. COMPARISON: No relevant prior studies available. FINDINGS: MAMMOGRAPHY: Breast composition: The breasts are heterogeneously dense, which may obscure small masses. Mass: No suspicious masses. Architectural distortion: No suspicious distortion. Calcifications: No suspicious calcifications. Asymmetric density: None. Skin thickening: None. Axillary adenopathy: None. IMPRESSION: No mammographic evidence of malignancy. Annual screening is recommended unless otherwise clinically indicated. ASSESSMENT: BI-RADS Category 1: Negative
== END ==
PROVIDERS: PCP Emergency Medicine; Visit Provider Nurse Practitioner Obstetrics & Gynecology
DX: Z12.31 Encounter for screening mammogram for malignant neoplasm of breast (principal); Z78.0 Asymptomatic menopausal state; Z80.3 Family history of malignant neoplasm of breast
CPT/HCPCS: 77063; 77067

== ENCOUNTER 2022-04-26 17:00 | Outpatient (RCR) | payer MEDICAID, SELFPAY | END 2022-04-26 17:05 | disposition home or self-care (01) | LOC: PT 17:00 | PROVIDERS: PCP Emergency Medicine; Visit Provider Student in an Organized Health Care Education/Training Program | DX: M79.18 Myalgia, other site (principal); S46.811A Strain of other muscles, fascia and tendons at shoulder and upper arm level, right arm, initial encounter; S46.812A Strain of other muscles, fascia and tendons at shoulder and upper arm level, left arm, initial encounter | CPT/HCPCS: 20560; 97010; 97014; 97035; 97110; 97112; 97140; 97163; 97164; 97530; G0283 ==

== ENCOUNTER → 2022-07-29 11:37 | Outpatient (POV) | payer MEDICAID, SELFPAY ==
--- NOTE | 2022-07-29 12:29 | EXP.PAIN.SOA ---
[facility] Pain Management SOAP Note Subjective:: Patient is a pleasant 42-year-old female who presents today for 6-month follow-up and medication refill. We are currently treating the patient for degenerative disc disease of cervical and lumbar spine, myofascial pain. Today she rates her pain a 0 out of 10. Patient denies any new trauma or injury. Patient denies any change to the location or type of pain she experiences. Patient is currently managed with tizanidine 2 mg once a day. Patient states she does occasionally have to take a second dose of this medication however she denies any side effects and states it does provide significant improvement. Patient is not on any scheduled medications. Her Jesús is [phone]. Its been reviewed and appropriate. Review of Systems: General: No recent weight changes, no fever, no sleep disturbances Respiratory: No cough, no shortness of air, no recurring pulmonary infections Cardiovascular/peripheral vascular: No chest pain, no palpitations, no edema, no shortness of breath Gastrointestinal: No new onset incontinence, normal bowel movements reported Genitourinary: No new onset incontinence Musculoskeletal: Neck pain low back pain Psychiatric: [Normal mood/affect] Neurological: [Denies weakness in extremities], [denies balance issues] Objective:: Physical Exam: General: Alert and oriented x3, no acute distress, pleasant and cooperative Lungs: Respirations even and unlabored, symmetrical chest expansion Eyes: PERRL Musculoskeletal: Flexion and extension of cervical, lumbar [spine] somewhat guarded secondary to pain, [antalgic gait noted] Neurological: Speech clear, no gross sensory deficit ORT score updated with low risk Assessment:: Degenerative disc disease of cervical and lumbar spine, myofascial pain Plan:: Patient is currently doing well with her medication regimen. I will send in a refill of her tizanidine 2 mg 3 times daily and provide a 6-month supply of this medication. Patient will return to clinic in 6 months for reevaluation of symptoms and plan of care. Patient has been instructed to contact the clinic with any concerns before the next appointment. Dr. Zabala has reviewed this note and agrees with this plan of care. This note was dictated using voice recognition software and make contain errors or omissions. [facility] Disclaimer: The information contained in this section may have been updated after the patient was seen, as this information can be updated by other users. 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
[2022-07-29 12:31] VITALS: BP 151/91; PULSE 69; RESP 18; O2SAT 98; BMI 50.5
== END | disposition home or self-care (01) ==
PROVIDERS: PCP Emergency Medicine; Visit Provider Nurse Practitioner Family
DX: M51.36 Other intervertebral disc degeneration, lumbar region (principal); M50.30 Other cervical disc degeneration, unspecified cervical region; M79.10 Myalgia, unspecified site
CPT/HCPCS: 99212; G0463

== ENCOUNTER → 2022-11-29 15:07 | Outpatient (CLI) | payer MEDICAID, SELFPAY ==
--- NOTE | 2022-11-29 15:13 | XR_ITS ---
FINAL REPORT CLINICAL HISTORY: right ankle pain @ lateral malleolus and achilles tendon region. Hx ankle fx. NKT. FINDINGS: Right ankle Three views were obtained. There is no acute fracture or dislocation. The joint spaces appear normal. No soft tissue abnormality is identified. IMPRESSION: No acute process. Reviewed, Interpreted and Dictated by Eduardo Lewis MD Transcribed by Tabatha Arguello Authenticated and [facility]
--- NOTE | 2022-11-29 15:13 | XR_ITS ---
FINAL REPORT CLINICAL HISTORY: right ankle pain @ lateral malleolus and achilles tendon region. Hx ankle fx. NKT. FINDINGS: Right foot Three views were obtained. There is no acute fracture or dislocation. The joint spaces appear normal. No soft tissue abnormality is identified. There is moderate calcaneal spurring. IMPRESSION: No acute process. Reviewed, Interpreted and Dictated by Eduardo Lewis MD Transcribed by Tabatha Arguello Authenticated and . [facility]
== END ==
PROVIDERS: PCP Emergency Medicine; Visit Provider Student in an Organized Health Care Education/Training Program
DX: M25.571 Pain in right ankle and joints of right foot (principal)
CPT/HCPCS: 73610; 73630

== ENCOUNTER → 2023-01-09 13:23 | Outpatient (POV) | payer MEDICAID, SELFPAY | PROVIDERS: Visit Provider Specialist/Technologist | DX: Z00.00 Encounter for general adult medical examination without abnormal findings (principal) ==

== ENCOUNTER 2023-03-20 10:30 | Outpatient (RCR) | payer MEDICAID, SELFPAY ==
--- NOTE | 2023-02-05 16:02 | HMH.PTOPEV ---
PT Outpatient Evaluation Rehab PT Outpatient Evaluation Start: 02/05/23 14:58 Freq: Status: Active Protocol: Document 02/05/23 14:58 [email or web address] (Rec: 02/05/23 16:01 RICHARD [id number]) E-signed By Lily Plummer, PT Outpatient Therapy Subjective History Subjective History Pt is a 43 y/o female who reports chronic R ankle pain for years with gradual worsening of pain over the last 2 years. Pt denies recent trauma or injury. Pt reports 3-4 years ago she was playing volleyball and jumped and landed on it causing pain the next day, denies twisting or spraining the ankle. Pt had a foot & ankle xray at [facility] on 11/29/22 without acute findings. Pt reports her doctor tried to order an MRI however it was denied by insurance until she completes PT. PT reports she was placed in a walking boot 2-3 months ago. Pt states I try to wear it except when driving. Pt reports increased burning pain of the Achilles tendon with wearing the boot. Pt denies numbness or tingling. Pt reports pain occurs at the heel and lateral ankle worse with activity such as standing , walking and going down>up the stairs. Pt reports the lateral ankle will also swell with increased activity. Pt reports she has been stretching her calf muscle for a long time without relief. Pt also states she bought shoe inserts about a month ago which have helped some with overall pain. Pt denies instability of the ankle or recent falls. Occupation: House Cleaning Medical History: Allergies, Tinnitus Gait: antalgic FWB in tennis shoe
--- NOTE | 2023-03-10 17:16 | HMH.RHREAS ---
Rehab Reassessment Rehab OP Re-assessment Start: 02/05/23 14:58 Freq: Status: Active Protocol: Document 03/10/23 16:02 [id number] (Rec: 03/10/23 17:16 RICHARD [id number]) E-signed By Lily Plummer PT Rehab Re-assessment Subjective Subjective Pt reports her ankle feels about the same overall since starting PT. Pt reports continued posterolateral ankle pain that is worse with activity. Pt reports she has been taking it easy only working a lot on Fridays therefore pain at worst is 3-4 /10 now. Pt reports she wears the walking boot occasionally to work but usually does not wear it. Pt repo Objective Objective Notes R ankle TTP: 3/4 TTP of distal achilles insertion, peroneal tt, calcaneus R ankle AROM: 12 DF, 40 PF, Inv 20, Ev 18 (p! with end range active Inversion AROM) R ankle MMT: 4+/5 grossly in open chain LEFS: 36/80 compared to 29/80 on IE Assessment Progress Assessment Slower Than Expected Assessment Notes Pt has attended 5 PT sessions consisting of aerobic exercise , calf stretching, ankle/foot strengthening, balance/ proprioception training, IASTM to the calf/peroneal musculature, and modalities with good tolerance. Pt continues to demonstrate hypersensitivity and tenderness to palpation of posterolateral ankle and subjective report of pain with weightbearing activities. Due to limited subjective report of progress and impairment with functional activities, hold PT treatment at this time and refer pt back to MD for further treatment options and MRI. Patient goals met ST/4 LT/10
== END 2023-03-20 10:35 | disposition home or self-care (01) ==
LOC: PT 10:30
PROVIDERS: PCP Emergency Medicine; Visit Provider Nurse Practitioner Family
DX: S93.401A Sprain of unspecified ligament of right ankle, initial encounter (principal); M25.571 Pain in right ankle and joints of right foot; M77.31 Calcaneal spur, right foot; G89.29 Other chronic pain
CPT/HCPCS: 97010; 97014; 97016; 97035; 97110; 97140; 97163; 97164; G0283

== ENCOUNTER → 2023-03-31 10:55 | Outpatient (CLI) | payer MEDICAID, SELFPAY ==
--- NOTE | 2023-03-31 10:55 | MR_ITS ---
FINAL REPORT CLINICAL HISTORY: RIGHT ACHILLES PAIN, NO INJURY COMPARISON: None FINDINGS: Multiplanar MR imaging of the right ankle was performed without contrast. There is mild bone marrow edema in the calcaneal tuberosity. No osteochondral lesion is identified. The ligaments are intact without evidence of injury. There is a small intrasubstance tear of the distal Achilles tendon with peritendinitis. There is a small partial tear of the insertion of the plantar aponeurosis. There is fluid in the retrocalcaneal bursa likely a bursitis. A small subtalar joint effusion is seen. The musculature is intact. There is no evidence of soft tissue mass or cyst. IMPRESSION: There is mild bone marrow edema in the calcaneal tuberosity, along with a small intrasubstance tear of the distal Achilles tendon with peritendinitis and fluid in the retrocalcaneal bursa, likely bursitis. Small partial tear insertion of the plantar aponeurosis. Small subtalar joint effusion. Reviewed, Interpreted and Dictated by Dewayne Mitchell III, MD Transcribed by Kristi Price Authenticated and [facility]
== END ==
PROVIDERS: PCP Student in an Organized Health Care Education/Training Program; Visit Provider Nurse Practitioner Family
DX: M25.571 Pain in right ankle and joints of right foot (principal); G89.29 Other chronic pain
CPT/HCPCS: 73721

== ENCOUNTER → 2023-05-22 13:28 | Outpatient (CLI) | payer MEDICAID, SELFPAY ==
--- NOTE | 2023-05-22 13:30 | MM_ITS ---
PROCEDURE INFORMATION: Exam: MG Bilateral Screening 3D Mammography Exam date and time: 05/22/2023 1:23 PM Age: 43 years old Clinical indication: Screening examination TECHNIQUE: Imaging protocol: Bilateral Screening tomosynthesis and 2D mammography including computer-aided detection (CAD) when performed. COMPARISON: MG MM DIG SCREENING MAMM BI W/CAD 03/28/2022 4:56 PM FINDINGS: MAMMOGRAPHY: Breast composition: There are scattered areas of fibroglandular density. Mass: None. Architectural distortion: None. Calcifications: No suspicious calcifications. Asymmetric density: None. Skin thickening: None. Axillary adenopathy: None. IMPRESSION: No mammographic evidence of malignancy. Annual screening is recommended unless otherwise clinically indicated. ASSESSMENT: BI-RADS Category 1: Negative
== END ==
PROVIDERS: PCP Student in an Organized Health Care Education/Training Program; Visit Provider Nurse Practitioner Obstetrics & Gynecology
DX: Z12.31 Encounter for screening mammogram for malignant neoplasm of breast (principal)
CPT/HCPCS: 77063; 77067

== ENCOUNTER 2023-09-12 18:08 | Outpatient (CLI) | payer MEDICAID, SELFPAY ==
[2023-09-12 18:20] LABS: Basophils % 0.8 % (0.1-2.0); Eosinophils # 0.2 K/mm3 (0.0-0.4); Eosinophils % 2.8 % (0.1-12.0); Hematocrit 42.5 % (37.0-47.0); Hemoglobin 13.6 g/dL (12.2-16.2); Lymphocytes # 1.8 K/mm3 (0.7-4.5); Lymphocytes % 33.6 % (10-50); Mean Corpuscular Volume 100.1 fl (81-99); Monocytes # 0.2 K/mm3 (0.1-1.0); Monocytes % 4.6 % (1.7-9.3); Neutrophils # 3.1 K/mm3 (1.8-7.8); Neutrophils % 58.2 % (37.0-80.0); Platelet Count 300 K/mm3 (142-424); Red Blood Count 4.24 M/mm3 (4.20-5.40); Red Cell Distribution Width 13.6 % (11.5-17.5); White Blood Count 5.3 K/mm3 (4.8-10.8)
[2023-09-12 19:11] LABS: Chloride 113 mmol/L (98-107); Potassium 4.3 mmoL/L (3.5-5.1); Sodium 140 mmol/L (136-145)
[2023-09-12 19:13] LABS: Alanine Aminotransferase 11 U/L (12-78); Alkaline Phosphatase 91 U/L (38-126); Aspartate Amino Transferase 21 U/L (14-36); Bilirubin,Total 0.4 mg/dl (0.2-1.3); Blood Urea Nitrogen 11 mg/dl (7-17); Estimated Glomerular Filt Rate 79 ml/min (>60); GFR (African American) 95 ML/MIN (>60)
[2023-09-12 19:14] LABS: Albumin Level 3.4 g/dl (3.5-5.0); Albumin/Globulin Ratio 1.3 (1.1-1.8); Anion Gap 7.3 mEq/L (5-15); Calcium 8.8 mg/dl (8.4-10.2); Carbon Dioxide 24 mmol/L (22.0-30.0); Chol/HDL Ratio 2.7 (1-3.5); Cholesterol 194 mg/dl (140-200); Globulin 2.7 g/dL (1.3-3.2); Glucose 83 mg/dl (74-100); HDL Cholesterol 72 mg/dl (40-60); Hemoglobin A1C 5.3 % (4.0-6.0); Iron 153 ug/dL (37-170); Total Protein,Serum 6.1 g/dl (6.3-8.2); Triglycerides 119 mg/dl (30-150); VLDL Cholesterol 24 mg/dL (0-40)
[2023-09-12 19:24] LABS: Total Iron Binding Capacity 399 ug/dL (265-497)
[2023-09-12 19:25] LABS: Direct LDL Cholesterol 81.91 mg/dL (100-129)
[2023-09-12 19:32] LABS: 25-OH Vitamin D, Total 25.4 ng/mL (30-100); Free T4 (Free Thyroxine) 1.06 ng/dl (0.78-2.19)
[2023-09-12 20:09] LABS: Vitamin B12 445 pg/mL (239-931)
== END 2023-09-12 23:59 ==
LOC: LAB.DROPOF 18:08
PROVIDERS: PCP Student in an Organized Health Care Education/Training Program; Visit Provider Student in an Organized Health Care Education/Training Program
DX: R53.83 Other fatigue (principal); E55.9 Vitamin D deficiency, unspecified; E66.01 Morbid (severe) obesity due to excess calories; Z68.43 Body mass index [BMI] 50.0-59.9, adult; Z79.85 Long-term (current) use of injectable non-insulin antidiabetic drugs; Z79.899 Other long term (current) drug therapy
CPT/HCPCS: 80053; 80061; 82306; 82607; 82728; 83036; 83540; 83550; 84439; 84443; 85025